=== PATIENT | male | born 1985 | race Caucasian/White ===

== ENCOUNTER 2017-01-06 14:13 | Emergency (ER) | payer OTHER ==
[~2017-01-06] VITALS: Ht 165.1 cm; Wt 63.5 kg
== END 2017-01-06 14:24 | disposition home or self-care (01) ==
LOC: ED 14:13
DX: Z00.8 Encounter for other general examination (principal)

== ENCOUNTER 2017-12-14 20:01 | Emergency (ER) | payer OTHER ==
[~2017-12-14] VITALS: Ht 152.4 cm; Wt 63.5 kg
== END 2017-12-14 21:59 | disposition home or self-care (01) ==
LOC: ED 20:01
DX: S90.31XA Contusion of right foot, initial encounter (principal); F17.200 Nicotine dependence, unspecified, uncomplicated; Z91.038 Other insect allergy status; Z91.030 Bee allergy status; Z91.018 Allergy to other foods; Z23 Encounter for immunization; X58.XXXA Exposure to other specified factors, initial encounter
CPT/HCPCS: 73630; 90471; 90715; 99283